=== PATIENT | male | born 1955 | race African-American/Black ===

== ENCOUNTER 2017-10-18 10:30 | Emergency (ER) | payer BC ==
[2017-10-18 11:07] LABS: ADD MAN DIFF? NO
[2017-10-18 11:15] LABS: BASO % 1 % (0-3); EOS # 0.2 x10^3/uL (0.0-0.7); EOS % 5 % (0-3); HEMATOCRIT 30.6 % (39.0-53.0); HEMOGLOBIN 10.3 g/dL (13.0-17.5); LYMPH % 21 % (24-48); MEAN CORPUSCULAR HEMOGLOBIN 32 pg (25-35); MEAN CORPUSCULAR HGB CONC 34 g/dL (31-37); MEAN CORPUSCULAR VOLUME 94 fL (79-100); MONO # 0.7 x10^3/uL (0.0-1.1); MONO % 16 % (0-9); NEUT # 2.6 x10^3uL (1.8-7.7); NEUT % 57 % (31-73); PLATELET COUNT 189 x10^3/uL (140-400); RED BLOOD COUNT 3.27 x10^6/uL (4.30-5.70); RED CELL DISTRIBUTION WIDTH 15.2 % (11.5-14.5); WHITE BLOOD COUNT 4.6 x10^3/uL (4.0-11.0)
[2017-10-18] MEDS: chlorproMAZINE IM 25 MG/ML AMPUL IM (11:18)
[2017-10-18 11:23] LABS: ANION GAP 10 (6-14); BLOOD UREA NITROGEN 15 mg/dL (8-26); BUN/CREATININE RATIO 14 (6-20); CARBON DIOXIDE 26 mmol/L (21-32); CHLORIDE 105 mmol/L (98-107); CREATININE 1.1 mg/dL (0.7-1.3); GFR 82.3; GLUCOSE 84 mg/dL (70-99); POTASSIUM 4.2 mmol/L (3.5-5.1); SODIUM 141 mmol/L (136-145)
[2017-10-18 11:28] LABS: ALBUMIN 3.6 g/dL (3.4-5.0); ALBUMIN/GLOBULIN RATIO 0.9 (1.0-1.7); ALK PHOS 71 U/L (46-116); ALT (SGPT) 19 U/L (16-63); AST (SGOT) 14 U/L (15-37); TOTAL BILIRUBIN 0.3 mg/dL (0.2-1.0); TOTAL PROTEIN 7.4 g/dL (6.4-8.2)
== END 2017-10-18 13:07 | disposition home or self-care (01) ==
LOC: ER 10:30
DX: R06.6 Hiccough (principal); R51 Headache
CPT/HCPCS: 36415; 71045; 80053; 85025; 93005; 96372; 99285-25; J3230

== ENCOUNTER → 2018-02-12 | Outpatient (CLI) | payer BC | END | disposition home or self-care (01) | LOC: KCIC MRI 09:56 | DX: R06.6 Hiccough (principal); Z86.61 Personal history of infections of the central nervous system | CPT/HCPCS: 70551 ==